=== PATIENT | female | born 1970 | race Caucasian/White ===

== ENCOUNTER 2025-05-05 08:53 | Outpatient (AMB) | payer OTHER, SELFPAY ==
[2025-05-05 09:20] VITALS: BMI 34.2
--- NOTE | 2025-05-05 09:20 | A.OFFVIS_ITS ---
VS Expanded 05/05/25 09:20 05/05/25 09:32 Height 5 ft 2 in 5 ft 2 in Weight 187 lb 2.759 oz 187 lb BMI 34.2 34.2 Intake Visit Reasons: Obesity Nutrition Presentation Details: Pt presents for MNT for obesity March 19 started on zepbound , 2.5 mgwk, doing well Pt wants to work on meal planning food frequency fruits : 0/2 x.wk dairy: cheese vegetable: 2-3x/wk beverages: water, coffee fish : 0-2/m coffee with sugar free cream (10 oz/) HVO-Thjlqjg-Gi.Jeor Equation Height: 5 ft 2 in Weight: 187 lb Resting Metabolic Rate: 1409.86 Calculated Activity Level: Sedentary Calories Needed to Maintain Weight: 1691.83 Diagnosis Nutrition problem #1: overweight/obesity and food nutri know defi As related to (etiology) #1: diagnosis As evidenced by (sign/symptom) #1: knowledge deficit of diet Assessment & Plan Assessment & Plan (1) Obesity (BMI 30.0-34.9): Code(s): E66.811 - Obesity, class 1 Category: Medical Plan: Wt: 85 Kg ( 05/17 ) Est kcal needs as per MSJ: 1700 (40% carb, 30% protein/fat) Est fluid needs as per 25-30 ml/d: 2600 Est prot per day as per 1 g/kg bw: 80-90 Recommend fiber intake : 8-10 g per day and gradually increase to 25-28 g per day for women and 35-38 g for men or as tolerated Recommend sodium intake per day : less than 2300 mg Educated patient on: ( R = reviewed V = verbalizes understanding N/R = needs review N/A = not applicable * Food sources of carbohydrate, adequate serving sizes and its role in various health conditions: R V N/R * Differences between complex carbohydrates a simple carbohydrates, role of fiber in diet: R * Lean protein sources of foods: R * Differences between types of fats and role in diet (mono on saturated fat fatty acids, saturated fatty acids, trans fats): R V N/R * Food sources of sodium in salt and healthy modifications for heart health in kidney health: R V R/V * Vitamins and minerals: R V N/R * Healthy plate method concept: R V N/R * Physical activity: Benefits a precaution: R V N/R Patient Instructions: Practice mindful eating Reduce total carb to 45g carb/20-30g pro at meal (3 meals/day) and 0-20 g carb/8 g prot as snack (2-3 /day) Keep hydrated, choosing low sugar beverages 9-10 cups fluids per day Coding Level of Care Code Nutr Indiv Intake (95730) Diagnoses Obesity (BMI 30.0-34.9) E66.811 Time Spent (min) 30
[2025-05-05 14:39] VITALS: BMI 34.2
== END 2025-05-05 10:06 | disposition home or self-care (01) ==
PROVIDERS: PCP Internal Medicine; Visit Provider Dietitian, Registered
DX: E66.811 Obesity, class 1 (principal)

== ENCOUNTER → 2025-05-05 08:53 | Outpatient (BNVA) | payer OTHER, SELFPAY | PROVIDERS: PCP Internal Medicine; Visit Provider Dietitian, Registered | DX: E66.811 Obesity, class 1 (principal) | CPT/HCPCS: 97802 ==